=== PATIENT | male | born 1990 | race Caucasian/White ===

== ENCOUNTER 2019-11-17 19:37 | Emergency (ER) | payer SELFPAY ==
[2019-11-17 19:50] VITALS: TEMP 98; BMI 23.9
--- NOTE | 2019-11-17 21:14 | PDOC ---
History of Present Illness - General Chief Complaint: Pain Stated Complaint: SEVERE PAIN/ WEAKNESS IN LEFT LEG Time Seen by Provider: 11/17/19 21:06 History Source: Patient - History of Present Illness Initial Comments: 11/17/19 21:26 Chief complaint: Back pain Patient is a 29-year-old male with no significant medical problems who works delivering vending equipment. Patient states he was moving something, felt a sharp pain in his lower back. Patient now has pain positional going down his left leg. No incontinence, numbness or saddle anesthesia. Patient is ambulatory but uncomfortable. GENERAL/CONSTITUTIONAL: No fever, weakness. dizziness HEAD, EYES, EARS, NOSE AND THROAT: No change in vision. No ear pain or discharge. No sore throat. CARDIOVASCULAR: No chest pain RESPIRATORY: No shortness of breath or cough GASTROINTESTINAL: No pain, nausea, vomiting, diarrhea or constipation GENITOURINARY: No dysuria MUSCULOSKELETAL: No neck, +back pain SKIN: No rash NEUROLOGIC: No headache, vertigo, loss of consciousness, or loss of sensation. GENERAL: The patient is awake, alert, and fully oriented, in no acute distress. HEAD: Normal with no signs of trauma. EYES: Pupils equal, round and reactive to light, sclera anicteric, conjunctiva clear. ENT: pharynx: no erythema, no exudate, uvula midline NECK: supple CHEST: clear, nontender, rr ABD: soft, nontender BACK: Mild right SI tenderness, no other tenderness or signs of injury EXTREMITIES: Normal range of motion, no edema. NEUROLOGICAL: Normal speech, normal gait. Cranial nerves II through XII grossly intact, no gross focal abnormalities SKIN: Warm, Dry Past History - Past Medical History Allergies/Adverse Reactions: Allergies Allergy/AdvReac Type Severity Reaction Status Date / Time dog dander Allergy Verified 11/17/19 19:52 egg Allergy Verified 11/17/19 19:52 hazelnut Allergy Verified 11/17/19 19:51 peanut Allergy Verified 11/17/19 19:51 shellfish derived Allergy Verified 11/17/19 19:51 soy Allergy Verified 11/17/19 19:50 tree nut Allergy Verified 11/17/19 19:51 wheat Allergy Verified 11/17/19 19:51 COPD: No - Psycho Social/Smoking Cessation Hx Smoking History: Current every day smoker Information on smoking cessation initiated: No Drug/Substance Use Hx: Yes (SUSIE) *Physical Exam - Vital Signs Last Vital Signs Temp Pulse Resp BP Pulse Ox 98 F 78 18 131/86 96 11/17/19 19:47 11/17/19 19:47 11/17/19 19:47 11/17/19 19:47 11/17/19 19:47 Medical Decision Making - Medical Decision Making 11/17/19 21:27 Patient who bent and then had sharp back pain, now has pain going down the right leg. Likely sciatica, will give Toradol and prednisone Will sent home on Medrol Dosepak and Motrin Discussed issues, findings, results, applicable medications and treatments and follow-up. All these were understood and all questions were answered Discharge - Discharge Information Problems reviewed: Yes Clinical Impression/Diagnosis: Sciatica Qualifiers: Laterality: right Qualified Code(s): M54.31 - Sciatica, right side Condition: Stable Disposition: HOME - Admission No - Follow up/Referral Referrals: Josh Olguin [Primary Care Provider] - Maico Benites MD [Staff Physician] - - Patient Discharge Instructions Patient Printed Discharge Instructions: DI for Sciatica Additional Instructions: No heavy lifting or bending Apply ice to the area 20 minutes every 2 hours for the next 2 days Continue taking Motrin 600 mg every 6 hours for pain. Darting tomorrow, take Medrol Dosepak until finished Return to the nearest ER if numbness, weakness, severe pain, problems with urinating or having bowel movements. Call orthopedist today for an appointment for further evaluation - Post Discharge Activity
[2019-11-17] MEDS ORDERED: KETOROLAC TROMETHAMINE 30 MG/1 ML VIAL IM ONE (21:20)
[2019-11-17] MEDS ORDERED: predniSONE 20 MG TABLET (UD) PO ONE (21:21)
[2019-11-17] MEDS ORDERED: KETOROLAC TROMETHAMINE 60 MG/2 ML VIAL ONE (21:25)
[2019-11-17] MEDS ORDERED: predniSONE 20 MG TABLET (UD) ONE (21:26)
[2019-11-17 21:48] VITALS: BP 127/86; PULSE 74
== END 2019-11-17 22:05 | disposition home or self-care (01) ==
LOC: JERFT 19:37
PROC: 3E0233Z Introduction of Anti-inflammatory into Muscle, Percutaneous Approach (ICD-10-PCS; principal; 2019-11-17)
DX: M54.31 Sciatica, right side (principal); Z91.012 Allergy to eggs; J30.81 Allergic rhinitis due to animal (cat) (dog) hair and dander; Z91.010 Allergy to peanuts; Z91.013 Allergy to seafood; Z91.018 Allergy to other foods
CPT/HCPCS: 99284-25

== ENCOUNTER 2020-08-31 19:03 | Emergency (ER) | payer SELFPAY ==
[2020-08-31 19:29] VITALS: BP 113/74; PULSE 99; TEMP 98; BMI 25.0
[2020-08-31] MEDS ORDERED: FAMOTIDINE 20 MG/50 ML IVPB 20 MG/50 ML MG IVPB ONE ×2 (19:53→20:43)
[2020-08-31] MEDS ORDERED: methylPREDNISolone NA SUCC 125 MG/2 ML VIAL IVPB ONE (19:53)
[2020-08-31] MEDS ORDERED: methylPREDNISolone NA SUCC 125 MG/2 ML VIAL ONE (20:43)
== END 2020-08-31 23:21 | disposition home or self-care (01) ==
LOC: JER 19:03
PROC: 3E033GC Introduction of Other Therapeutic Substance into Peripheral Vein, Percutaneous Approach (ICD-10-PCS; principal; 2020-08-31)
PROC: 3E033GC Introduction of Other Therapeutic Substance into Peripheral Vein, Percutaneous Approach (ICD-10-PCS; 2020-08-31)
DX: T78.40XA Allergy, unspecified, initial encounter (principal)
CPT/HCPCS: 99284-25

== ENCOUNTER 2021-04-25 19:37 | Emergency (ER) | payer SELFPAY ==
[2021-04-25 20:27] VITALS: BP 97/60; PULSE 72; TEMP 98; BMI 24.0
[2021-04-25] MEDS ORDERED: METHOCARBAMOL 500 MG TABLET PO ONE ×2 (21:36)
[2021-04-25] MEDS ORDERED: KETOROLAC TROMETHAMINE 30 MG/1 ML VIAL IM ONE (21:36)
[2021-04-25] MEDS ORDERED: METHOCARBAMOL 500 MG TABLET ONE (21:37)
[2021-04-25] MEDS ORDERED: KETOROLAC TROMETHAMINE 30 MG/1 ML VIAL ONE (21:37)
== END 2021-04-25 22:00 | disposition home or self-care (01) ==
LOC: JERFT 19:37
PROC: 3E0233Z Introduction of Anti-inflammatory into Muscle, Percutaneous Approach (ICD-10-PCS; principal; 2021-04-25)
DX: M54.5 Low back pain (principal)
CPT/HCPCS: 99284-25